=== PATIENT | female | born 1985 | race African-American/Black ===

== ENCOUNTER 2020-05-13 17:06 | Emergency (ER) | payer OTHER ==
[~2020-05-13] VITALS: Ht 160 cm; Wt 59.0 kg
[2020-05-13] MEDS ORDERED: IOHEXOL 300 MG/ML 75 ML VIAL. IV ONE (18:00)
[2020-05-13] MEDS ORDERED: CONTRAST GIVEN. MC PRN (18:15)
--- NOTE | 2020-05-13 18:23 | PHYS DOC ---
Past History Past Medical History: No Pertinent History Past Surgical History: No Surgical History Alcohol Use: None Adult General Chief Complaint Chief Complaint: FLANK PAIN HPI HPI Patient is a 34-year-old female who presents for abdominal pain. States this has been going on for past 3 days and has waxed and waned but today on waking up is been constant and right lower quadrant. Certain body positions make better, as such other body positions make worse such as stretching and overhead exercises with her arms. Patient reports being physically active and has been working out more than usual lately with her personal companion. Denies any fever, no shortness of breath, admits mild nausea without any vomiting or diarrhea. Patient denies any urinary symptoms or changes in baseline bladder or bowel function. No COVID-19 contact, no concerning ingestion or long distance travel Review of Systems Review of Systems Fourteen body systems of review of systems have been reviewed. See HPI for pertinent positives and negative responses, other patricia all other systems are negative, non-pertinent or non-contributory Current Medications Current Medications Current Medications Medications (Trade) Dose Ordered Sig/Micheal Start Time Stop Time Status Last Admin Dose Admin Info (Do NOT chart on this entry -- for MONITORING) 1 each PRN DAILY PRN 05/13/20 18:15 05/15/20 18:14 Iohexol (Omnipaque 300 Mg/ml) 75 ml 1X ONCE 05/13/20 18:00 05/13/20 18:01 DC 05/13/20 18:05 75 ML Allergies Allergies Allergies Coded Allergies Type Severity Reaction Last Updated Verified Penicillins Allergy Unknown 05/13/20 Yes acetaminophen Allergy Unknown 05/13/20 Yes aspirin Allergy Unknown 05/13/20 Yes oxycodone Allergy Unknown 05/13/20 Yes Physical Exam Physical Exam Constitutional: Well developed, well nourished, no acute distress, non-toxic appearance. HENT: Normocephalic, atraumatic, bilateral external ears normal, oropharynx moist, no oral exudates, nose normal. Eyes: PERRLA, EOMI, conjunctiva normal, no discharge. Neck: Normal range of motion, no tenderness, supple, no stridor. Cardiovascular: Heart rate regular, sinus rhythm, no murmurs rubs or gallops Lungs & Thorax: Bilateral breath sounds clear to auscultation Abdomen: Bowel sounds normal, soft, positive McBurney's point tenderness without guarding or rebound, no masses, no pulsatile masses. Nonsurgical abdomen, no peritoneal signs Skin: Warm, dry, no erythema, no rash. Back: No tenderness, no CVA tenderness. Extremities: No tenderness, no cyanosis, no clubbing, ROM intact, no edema. Neurologic: Alert and oriented X 3, grossly normal motor & sensory function, no focal deficits noted. Psychologic: Affect normal, judgement normal, anxious mood Current Patient Data Vital Signs Vital Signs Date Time Temp Pulse Resp B/P (MAP) Pulse Ox O2 Delivery O2 Flow Rate FiO2 05/13/20 17:17 98.7 108 16 138/104 (115) 98 Room Air Lab Results Laboratory Tests Test 05/13/20 17:44 POC Urine HCG, Qualitative hcg negative (Negative) EKG EKG [] Radiology/Procedures Radiology/Procedures PROCEDURE: CT ABD PELV W/ IV CONTRST ONLY INDICATION: Reason: RLQ abdominal pain, urinary frequency. Omni 300 75cc / Spl. Instructions: / History: . COMPARISON: None. TECHNIQUE: Axial CT images obtained through the abdomen and pelvis with contrast. One or more of the following individualized dose reduction techniques were utilized for this examination: 1. Automated exposure control; 2. Adjustment of the mA and/or kV according to patient size; 3. Use of iterative reconstruction technique. FINDINGS: Abdominal aorta is not aneurysmal. There is some prominent lymph nodes in the groin. No intrahepatic bile duct dilation. No peripancreatic fluid collection. Spleen is unremarkable. No hydronephrosis. Urinary bladder is partially distended. No periappendiceal inflammatory changes. No dilated loops of bowel to suggest obstruction. IMPRESSION: * No evidence of bowel obstruction or appendicitis. * No hydronephrosis. * The urinary bladder is not very distended with some prominence the wall but this is commonly seen within the bladder is not distended. Electronically signed by: Maximilian Zapata MD (05/13/2020 6:45 PM) [id number] Heart Score Risk Factors: Risk Factors: DM, Current or recent (<one month) smoker, HTN, HLP, family history of CAD, obesity. Risk Scores: Risk Factors: DM, Current or recent (<one month) smoker, HTN, HLP, family history of CAD, obesity. Course & Med Decision Making Course & Med Decision Making Patient seen after initial work-up started by off going ER physician Jacob nonconcerning Comprehensive history and physical exam obtained Patient asymptomatic throughout entirety of ER visit. Reviewed grossly negative work-up I discussed most likely diagnosis of abdominal pain unspecified versus musculoskeletal abdominal wall strain from recent increase in physical activity I did disclose this might be an acute presentation more concerning pathology and as such, close PCP follow-up was advised and strict return precautions were discussed extensively with good understanding Ultimately patient discharged home with continued supportive care, exercises, and outpatient PCP follow-up [place] Disclaimer Dragon Disclaimer This electronic medical record was generated, in whole or in part, using a voice recognition dictation system. Departure Departure: Impression: Primary Impression: Abdominal pain Disposition: DC HOME SELF CARE/HOMELESS Condition: STABLE Referrals: SANJU HADLEY DO (PCP) Patient Instructions: Abdominal Pain (Nonspecific) Additional Instructions: As discussed prior to ER departure, please call your primary care physician first thing tomorrow morning to schedule outpatient follow-up in upcoming 1 to 7 days time Please discuss role of physical therapy versus therapeutic abdominal wall injection for likely musculoskeletal related abdominal pain for which you were seen for today Concerning signs or symptoms represent prior to outpatient follow-up, please do not hesitate to represent for formal evaluation. Is a pleasure to take care of you and I wish you a speedy recovery! ZAIRA GONZALEZ DO May 13, 2020 18:23
[2020-05-13 18:29] LABS: BASO % 1 % (0-3); EOS # 0.1 x10^3/uL (0.0-0.7); EOS % 1 % (0-3); HEMATOCRIT 34.8 % (36.0-47.0); HEMOGLOBIN 11.3 g/dL (12.0-15.5); LYMPH % 26 % (24-48); MEAN CORPUSCULAR HEMOGLOBIN 27 pg (25-35); MEAN CORPUSCULAR HGB CONC 33 g/dL (31-37); MEAN CORPUSCULAR VOLUME 83 fL (79-100); MONO # 0.7 x10^3/uL (0.0-1.1); MONO % 9 % (0-9); NEUT # 4.8 x10^3uL (1.8-7.7); NEUT % 64 % (31-73); PLATELET COUNT 367 x10^3/uL (140-400); WHITE BLOOD COUNT 7.6 x10^3/uL (4.0-11.0)
[2020-05-13 18:40] LABS: CALCIUM 8.9 mg/dL (8.5-10.1); GFR 76.3; POTASSIUM 3.6 mmol/L (3.5-5.1)
[2020-05-13 18:45] LABS: BILIRUBIN,URINE NEG (NEG); CLARITY,URINE CLEAR; COLOR,URINE YELLOW; GLUCOSE,URINE NEG (NEG); NITRITE,URINE NEG (NEG); UROBILINOGEN,URINE 0.2 mg/dL (0.2 mg/dL)
[2020-05-13 18:46] LABS: ALBUMIN 3.2 g/dL (3.4-5.0); ALBUMIN/GLOBULIN RATIO 0.8 (1.0-1.7); TOTAL BILIRUBIN 0.1 mg/dL (0.2-1.0); TOTAL PROTEIN 7.1 g/dL (6.4-8.2)
[2020-05-13 18:47] LABS: BACTERIA,URINE FEW /HPF (0-FEW); SQUAMOUS EPITHELIAL CELL,UR FEW /LPF; WBC,URINE OCC /HPF (0-4)
--- NOTE | 2020-05-13 18:49 | RAD ---
INDICATION: Reason: RLQ abdominal pain, urinary frequency. Omni 300 75cc / Spl. Instructions: / History: . COMPARISON: None. TECHNIQUE: Axial CT images obtained through the abdomen and pelvis with contrast. One or more of the following individualized dose reduction techniques were utilized for this examination: 1. Automated exposure control; 2. Adjustment of the mA and/or kV according to patient size; 3. Use of iterative reconstruction technique. FINDINGS: Abdominal aorta is not aneurysmal. There is some prominent lymph nodes in the groin. No intrahepatic bile duct dilation. No peripancreatic fluid collection. Spleen is unremarkable. No hydronephrosis. Urinary bladder is partially distended. No periappendiceal inflammatory changes. No dilated loops of bowel to suggest obstruction. IMPRESSION: * No evidence of bowel obstruction or appendicitis. * No hydronephrosis. * The urinary bladder is not very distended with some prominence the wall but this is commonly seen within the bladder is not distended. Electronically signed by: Maximilian Zapata MD (05/13/2020 6:45 PM) [id number]
[2020-05-13 19:20] VITALS: BP 144/94
== END 2020-05-13 19:25 | disposition home or self-care (01) ==
LOC: ER 17:06
DX: R10.31 Right lower quadrant pain (principal); Z88.0 Allergy status to penicillin; Z88.5 Allergy status to narcotic agent; Z88.6 Allergy status to analgesic agent
CPT/HCPCS: 36415; 74177; 80053; 81001; 81025; 85025; 87086; 99285; Q9967

== ENCOUNTER 2020-05-22 15:59 | Emergency (ER) | payer OTHER ==
[~2020-05-22] VITALS: Ht 160 cm; Wt 59.0 kg
[2020-05-22 16:00] VITALS: BP 163/107
[2020-05-22] MEDS ORDERED: IV NORMAL SALINE 1,000ML 1,000 ML IV ONE (16:45)
--- NOTE | 2020-05-22 17:28 | RAD ---
CHEST AP ONLY Clinical History: Reason: cough, +Covid / Spl. Instructions: / History: Technique: AP view of the chest was obtained at 05/22/2020 4:43 PM. Comparison: None. Findings: The cardiomediastinal silhouette is normal. The pulmonary vasculature is normal. The lungs and pleural margins are clear. Impression: No evidence of an acute cardiopulmonary process. Electronically signed by: Ramesh Allen III, MD (05/22/2020 5:25 PM) [facility]
--- NOTE | 2020-05-22 17:29 | RAD ---
COMPLETE RENAL ULTRASOUND Indication: Flank pain, Covid positive. Comparison: None. Procedure: Transabdominal ultrasound images are obtained of the kidneys and bladder. Findings: The kidneys demonstrate normal cortical echotexture. Corticomedullary differentiation is preserved. There is no hydronephrosis. The right kidney measures 11.3 cm. The left kidney measures 10.3 cm. The urinary bladder is not well distended but otherwise normal. The IVC is patent. The visualized abdominal aorta is normal caliber. IMPRESSION: Unremarkable renal ultrasound. Electronically signed by: Paulo Monge MD (05/22/2020 5:27 PM) [id number]
--- NOTE | 2020-05-22 17:53 | PHYS DOC ---
Past History Past Medical History: No Pertinent History Past Surgical History: No Surgical History Alcohol Use: None Adult General Chief Complaint Chief Complaint: BLOOD IN URINE HPI HPI Patient is a 34-year-old female patient presented to the ED today requesting renal ultrasound. Patient states she was seen at [facility] last week and her urine was brown, they ordered an outpatient ultrasound but she tested positive for COVID 19 and she was sent to the ED for the ultrasound. Renal ultrasound is negative. Chest x-ray is negative. Review of Systems Review of Systems Constitutional: Denies fever or chills [] Eyes: Denies change in visual acuity, redness, or eye pain [] HENT: Denies nasal congestion or sore throat [] Respiratory: Denies cough or shortness of breath [] Cardiovascular: No additional information not addressed in HPI [] GI: Denies abdominal pain, nausea, vomiting, bloody stools or diarrhea [] : Denies dysuria or hematuria [] Musculoskeletal: Denies back pain or joint pain [] Integument: Denies rash or skin lesions [] Neurologic: Denies headache, focal weakness or sensory changes [] Endocrine: Denies polyuria or polydipsia [] All other systems were reviewed and found to be within normal limits, except as documented in this note. Current Medications Current Medications Current Medications Medications (Trade) Dose Ordered Sig/Micheal Start Time Stop Time Status Last Admin Dose Admin Sodium Chloride 1,000 ml @ 1,000 mls/hr 1X ONCE 05/22/20 16:45 05/22/20 17:39 DC Allergies Allergies Allergies Coded Allergies Type Severity Reaction Last Updated Verified Penicillins Allergy Unknown 05/13/20 Yes acetaminophen Allergy Unknown 05/13/20 Yes aspirin Allergy Unknown 05/13/20 Yes oxycodone Allergy Unknown 05/13/20 Yes Physical Exam Physical Exam Constitutional: Well developed, well nourished, no acute distress, non-toxic appearance. [] HENT: Normocephalic, atraumatic, bilateral external ears normal, oropharynx moist, no oral exudates, nose normal. [] Eyes: PERRLA, EOMI, conjunctiva normal, no discharge. [] Neck: Normal range of motion, no tenderness, supple, no stridor. [] Cardiovascular:Heart rate regular rhythm, no murmur [] Lungs & Thorax: Bilateral breath sounds clear to auscultation [] Abdomen: Bowel sounds normal, soft, no tenderness, no masses, no pulsatile masses. [] Skin: Warm, dry, no erythema, no rash. [] Back: No tenderness, no CVA tenderness. [] Extremities: No tenderness, no cyanosis, no clubbing, ROM intact, no edema. [] Neurologic: Alert and oriented X 3, normal motor function, normal sensory function, no focal deficits noted. [] Psychologic: Affect normal, judgement normal, mood normal. [] Current Patient Data Vital Signs Vital Signs Date Time Temp Pulse Resp B/P (MAP) Pulse Ox O2 Delivery O2 Flow Rate FiO2 05/22/20 16:00 89 16 163/107 (125) 100 Room Air EKG EKG [] Radiology/Procedures Radiology/Procedures []PROCEDURE: RENAL COMPLETE BILATERAL COMPLETE RENAL ULTRASOUND Indication: Flank pain, Covid positive. Comparison: None. Procedure: Transabdominal ultrasound images are obtained of the kidneys and bladder. Findings: The kidneys demonstrate normal cortical echotexture. Corticomedullary differentiation is preserved. There is no hydronephrosis. The right kidney measures 11.3 cm. The left kidney measures 10.3 cm. The urinary bladder is not well distended but otherwise normal. The IVC is patent. The visualized abdominal aorta is normal caliber. IMPRESSION: Unremarkable renal ultrasound. Electronically signed by: Paulo Monge MD (05/22/2020 5:27 PM) [id number] DICTATED AND SIGNED BY: PAULO MONGE MD DATE: 05/22/201726 CC: [facility]; SANJU HADLEY DO; ENID SY APRN ~ PROCEDURE: CHEST AP ONLY CHEST AP ONLY Clinical History: Reason: cough, +Covid / Spl. Instructions: / History: Technique: AP view of the chest was obtained at 05/22/2020 4:43 PM. Comparison: None. Findings: The cardiomediastinal silhouette is normal. The pulmonary vasculature is normal. The lungs and pleural margins are clear. Impression: No evidence of an acute cardiopulmonary process. Electronically signed by: Isaias Duff III, MD (05/22/2020 5:25 PM) [facility] DICTATED AND SIGNED BY: ISAIAS DUFF III, MD DATE: 05/22/20 172 CC: [facility]; SANJU HADLEY DO; ENID SY APRN ~ Heart Score Risk Factors: Risk Factors: DM, Current or recent (<one month) smoker, HTN, HLP, family history of CAD, obesity. Risk Scores: Risk Factors: DM, Current or recent (<one month) smoker, HTN, HLP, family history of CAD, obesity. Course & Med Decision Making Course & Med Decision Making Pertinent Labs and Imaging studies reviewed. (See chart for details) This is a 34-year-old female patient presented to the ED today to get renal ultrasound. She was scheduled to do this but she tested positive for COVID-19 and was sent to the ED. She has had a brown colored urine last week. UA is negative, renal ultrasound are negative. Discharge to home. Follow-up with her doctor in the course of next week. Instructed to push fluids. Dragon Disclaimer Dragon Disclaimer This electronic medical record was generated, in whole or in part, using a voice recognition dictation system. Departure Departure: Impression: Primary Impression: Dark urine Disposition: 01 DC HOME SELF CARE/HOMELESS Condition: STABLE Referrals: SANJU HADLEY DO (PCP) follow up next week Patient Instructions: Flank Pain, [id number] Additional Instructions: Your renal ultrasound was negative. Please follow-up with your own doctor next week. Come back to the ED at any point symptoms worsen. You are Covid positive, quarantine yourself for 10 days from the day you were diagnosed MARLENAENID STARR RAVI May 22, 2020 17:53
[2020-05-22 18:06] LABS: BILIRUBIN,URINE NEG (NEG); CLARITY,URINE CLEAR; COLOR,URINE STRAW; GLUCOSE,URINE NEG (NEG)
[2020-05-22 18:07] LABS: BACTERIA,URINE FEW /HPF (0-FEW); NITRITE,URINE NEG (NEG); SQUAMOUS EPITHELIAL CELL,UR FEW /LPF; UROBILINOGEN,URINE 0.2 mg/dL (0.2 mg/dL)
== END 2020-05-22 18:28 | disposition home or self-care (01) ==
LOC: ER 15:59
DX: R82.998 Other abnormal findings in urine (principal); U07.1 COVID-19; Z88.0 Allergy status to penicillin; Z88.5 Allergy status to narcotic agent; Z88.6 Allergy status to analgesic agent
CPT/HCPCS: 71045; 76770; 81001; 99285-25

== ENCOUNTER 2020-06-01 23:34 | Emergency (ER) | payer OTHER ==
[~2020-06-01] VITALS: Ht 162.6 cm; Wt 70.3 kg
--- NOTE | 2020-06-02 00:45 | PHYS DOC ---
Past History Past Medical History: No Pertinent History Past Medical History COVID Past Surgical History: No Surgical History Alcohol Use: None General Adult EDM: Chief Complaint: SHORTNESS OF BREATH HPI: HPI: ".. I was diagnosed with Covid on May 21... I still feel like I got the flu.. 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 Patient had a confirmed diagnosis of Covid on May 21.. Since that time she has been self isolating. Patient states generalized discomfort since diagnosis. Tonight she presents because she feels she is more short of breath. Patient denies any history of coagulopathy. No history of recent travel outside [facility]. No specific ill contacts. Patient is normally healthy and in good physical condition. Patient only follows at [place]. Review of Systems: Review of Systems: Constitutional: Complains of fever or chills Eyes: Denies change in visual acuity HENT: Complains of nasal congestion Respiratory: Complains of cough, wheezing and shortness of breath Cardiovascular: Denies chest pain or edema GI: Denies abdominal pain, nausea, vomiting, bloody stools or diarrhea : Denies dysuria Musculoskeletal: Complains of generalized myalgia, arthralgia Integument: Denies rash Neurologic: Denies headache, focal weakness or sensory changes Endocrine: Denies polyuria or polydipsia Lymphatic: Denies swollen glands Psychiatric: Denies depression or anxiety Family History: Family History: Noncontributory Current Medications: Current Meds: See nursing for home medications Allergies: Allergies: Allergies Coded Allergies Type Severity Reaction Last Updated Verified Penicillins Allergy Unknown 05/13/20 Yes acetaminophen Allergy Unknown 05/13/20 Yes aspirin Allergy Unknown 05/13/20 Yes oxycodone Allergy Unknown 05/13/20 Yes Physical Exam: PE: Constitutional: Well developed, well nourished, moderate acute distress, non- toxic appearance. [] HENT: Normocephalic, atraumatic, bilateral external ears normal, oropharynx moist, no oral exudates, nose swollen turbinates and clear rhinorrhea Eyes: PERRLA, EOMI, conjunctiva normal, no discharge. [] Neck: Normal range of motion, no tenderness, supple, no stridor. [] Cardiovascular:Heart rate regular rhythm, no murmur [] Lungs & Thorax: Bilateral breath sounds equal apex with scattered wheezes auscultation [] Abdomen: Bowel sounds normal, soft, no tenderness, no masses, no pulsatile masses. [] Skin: Warm, dry, no erythema, no rash. [] Back: No tenderness, no CVA tenderness. [] Extremities: No tenderness, no cyanosis, no clubbing, ROM intact, no edema. No cording appreciated Neurologic: Alert and oriented X 3, normal motor function, normal sensory function, no focal deficits noted. [] Psychologic: Affect anxious, judgement normal, mood normal. [] Current Patient Data: Labs: Laboratory Tests Test 06/02/20 00:16 POC Urine HCG, Qualitative hcg negative (Negative) EKG: EKG: My interpretation of EKG shows a sinus rhythm at 75 bpm. No findings of acute STEMI with contralateral changes [] Radiology/Procedures: Radiology/Procedures: [[address] [id number] IMAGING REPORT Signed PATIENT: SHERINE SCHWARTZ ACCOUNT: [id number] : 1985 LOCATION: ER AGE: 34 SEX: F EXAM STATUS: REG ER ORD. PHYSICIAN: JUAN MANUEL WEBBER MD REASON: SOB PROCEDURE: PORTABLE CHEST 1V Study: CR PORTABLE CHEST 1V Indication: Shortness of breath. Comparison: 05/22/2020 Findings: Unchanged cardiomediastinal silhouette and stephanie. Slight asymmetric haziness at the right lung base relative to the left but this could be in part summation artifact. No dense consolidation. No layering effusion or pneumothorax. Grossly intact osseous structures. Impression: Mild asymmetric haziness at the right lung base though this could be related to summation artifact. No findings of a typical pneumonia. Attention on the forthcoming CT which will more completely assess the lungs. Electronically signed by: PAMELA PICKETT MD (06/02/2020 1:07 AM) [id number] DICTATED AND SIGNED BY: PAMELA PICKETT MD DATE: 06/02/20 0107 CC: JUAN MANUEL WEBBER MD; SANJU HADLEY DO ~ ][address] [id number] IMAGING REPORT Signed PATIENT: SHERINE SCHWARTZ ACCOUNT: [id number] : 1985 LOCATION: ER AGE: 34 SEX: F EXAM STATUS: REG ER ORD. PHYSICIAN: JUAN MANUEL WEBBER MD REASON: Pleuritic chest pain, positive COVID 05/21, OMNI 350, 90ml PROCEDURE: CT ANGIOGRAPHY CHEST Study: CT CHEST WITH CONTRAST - PULMONARY ANGIOGRAM History: Pleuritic chest pain. COVID-19 positive. Comparison: CT abdomen/pelvis 05/13/2020 Technique: Helical CT of the chest performed after the administration of 90 cc Omnipaque 350 intravenous contrast and timed for angiographic evaluation of the pulmonary arteries per PE protocol. Coronal and sagittal 3D MIP reformations were obtained. One or more of the following individualized dose reduction techniques were utilized for this examination: 1. Automated exposure control 2. Adjustment of the mA and/or kV according to patient size 3. Use of iterative reconstruction technique. Findings: Pulmonary Arteries: No main, lobar or segmental pulmonary embolism. Heart/Systemic Vasculature: No aortic dissection. The visualized great vessels are patent. No CT manifestations of right heart strain. Mediastinum: Small amount of fluid within the mid upper esophageal lumen. Nonmasslike soft tissue at the anterior mediastinum most typical of residual thymic tissue. Either a mildly prominent subcarinal lymph node or pericardial recess fluid. Mildly prominent left hilar lymph node measuring 1 cm short axis, image 56 series 5. These findings are favored reactive given the appearance of the lungs. Lungs: Nodular, predominantly subpleural opacities scattered throughout both lungs most notable at the right lung base. Background mild atelectasis. No pneumothorax or pleural effusion. The central airways are patent. Neck/Axilla/Body Wall: Within normal limits. Upper Abdomen: No acute abnormality. Bones: As no acute or aggressive osseous process. Miscellaneous: None. IMPRESSION: 1. No main, lobar or segmental pulmonary embolism. 2. Scattered nodular opacities involving both lungs with a subpleural predilection. Image Scientist pleural-based opacities at the right lower lobe on image 71 series 5. Especially given history, an atypical viral pneumonia is favored though follow-up is recommended to confirm improvement. Electronically signed by: PAMELA PICKETT MD (06/02/2020 3:20 AM) [id number] DICTATED AND SIGNED BY: PAMELA PICKETT MD DATE: 06/02/20319 CC: JUAN MANUEL WEBBER MD; SANJU HADLEY DO ~ Heart Score: HEART Score for Chest Pain: HEART Score for Chest Pain Response (Comments) Value History Slighlty/Non-Suspicious 0 ECG Normal 0 Age < 45 0 Risk Factors No Risk Factors 0 Troponin < Normal Limit 0 Total 0 Risk Factors: Risk Factors: DM, Current or recent (<one month) smoker, HTN, HLP, family history of CAD, obesity. Risk Scores: Score 0 - 3: 2.5% MACE over next 6 weeks - Discharge Home Score 4 - 6: 20.3% MACE over next 6 weeks - Admit for Clinical Observation Score 7 - 10: 72.7% MACE over next 6 weeks - Early Invasive Strategies Course & Med Decision Making: Course & Med Decision Making Pertinent Labs and Imaging studies reviewed. (See chart for details) Patient continues to self isolate. Patient wear a mask covering her nose and mouth when close to anyone else. Patient follow-up with primary care. Patient push fruit juices. Patient take Tylenol and ibuprofen Profen for fever and discomfort. For marked discomfort may take Vicoprofen up 4 times a day. Patient use MDI 2 puffs 4 times a day with spacer. Patient take Zithromax 250 mg daily. Patient take Eliquis 2.5 mg twice a day. Patient return if any concerns. Impression: 1. Viral syndrome 2. Positive COVID test 05/21 3. Mild hypokalemia 3.3 4. Anemia hemoglobin 11.6 5. Mild elevation D-dimer 0.99 [] Dragon Disclaimer: Dragon Disclaimer: This electronic medical record was generated, in whole or in part, using a voice recognition dictation system. Departure Departure: Referrals: SANJU HADLEY DO (PCP) Scripts Ondansetron Hcl (ZOFRAN) 4 Mg Tablet 8 MG PO QIDPRN PRN for NAUSEA/VOMITING, #30 TAB Prov: JUAN MANUEL WEBBER MD 06/02/20 Apixaban (ELIQUIS) 2.5 Mg Tablet 2.5 MG PO BID for COVID for 14 Days, #28 TAB Prov: JUAN MANUEL WEBBER MD 06/02/20 Hydrocodone/Ibuprofen (HYDROCODONE-IBUPROFEN 7.5-200 ) 1 Each Tablet 1 TAB PO PRN Q6HRS PRN for PAIN, #30 TAB 0 Refills Prov: JUAN MANUEL WEBBER MD 06/02/20 Azithromycin (ZITHROMAX) 250 Mg Tablet 250 MG PO DAILY for ANTI-BIOTIC, #5 TAB 0 Refills Prov: JUAN MANUEL WEBBER MD 06/02/20 Dragon Disclaimer This chart was dictated in whole or in part using Voice Recognition software in a busy, high-work load, and often noisy Emergency Department environment. It may contain unintended and wholly unrecognized errors or omissions. JUAN MANUEL WEBBER MD Jun 02, 2020 00:45
[2020-06-02] MEDS ORDERED: IV RINGERS SOLUTION,LACTATED 1,000 ML IV SCH (00:50)
--- NOTE | 2020-06-02 01:10 | RAD ---
Study: CR PORTABLE CHEST 1V Indication: Shortness of breath. Comparison: 05/22/2020 Findings: Unchanged cardiomediastinal silhouette and stephanie. Slight asymmetric haziness at the right lung base relative to the left but this could be in part summation artifact. No dense consolidation. No layering effusion or pneumothorax. Grossly intact osseous structures. Impression: Mild asymmetric haziness at the right lung base though this could be related to summation artifact. No findings of a typical pneumonia. Attention on the forthcoming CT which will more completely assess the lungs. Electronically signed by: PAMELA PICKETT MD (06/02/2020 1:07 AM) [id number]
[2020-06-02] MEDS ORDERED: CONTRAST GIVEN. MC PRN (01:15)
[2020-06-02 01:25] LABS: BARBITURATES NEG (NEG); BENZODIAZEPINES NEG (NEG); CANNABINOIDS NEG (NEG); COCAINE NEG (NEG); METHADONE NEG (NEG); OPIATES NEG (NEG); PHENCYCLIDINE NEG (NEG)
[2020-06-02 01:27] LABS: BACTERIA,URINE 0 /HPF (0-FEW); BILIRUBIN,URINE NEG (NEG); CLARITY,URINE CLEAR; COLOR,URINE YELLOW; GLUCOSE,URINE NEG (NEG); NITRITE,URINE NEG (NEG); RBC,URINE OCC /HPF (0-2); SQUAMOUS EPITHELIAL CELL,UR FEW /LPF; UROBILINOGEN,URINE 0.2 mg/dL (0.2 mg/dL); WBC,URINE OCC /HPF (0-4)
[2020-06-02 01:28] LABS: AMPHETAMINE/METHAMPHETAMINE NEG (NEG)
[2020-06-02] MEDS ORDERED: ALBUTEROL SULFATE 8GM INHALER. IH ONE (01:30)
[2020-06-02] MEDS ORDERED: IOHEXOL 350 MG/ML 100 ML VIAL. IV ONE (01:30)
[2020-06-02] MEDS ORDERED: APIXABAN 2.5 MG TABLET ONE (01:59)
[2020-06-02 02:18] LABS: BASO % 1 % (0-3); EOS # 0.1 x10^3/uL (0.0-0.7); EOS % 2 % (0-3); HEMATOCRIT 35.9 % (36.0-47.0); HEMOGLOBIN 11.6 g/dL (12.0-15.5); LYMPH # 2.4 x10^3/uL (1.0-4.8); LYMPH % 39 % (24-48); MEAN CORPUSCULAR HEMOGLOBIN 27 pg (25-35); MEAN CORPUSCULAR HGB CONC 32 g/dL (31-37); MEAN CORPUSCULAR VOLUME 83 fL (79-100); MONO # 0.6 x10^3/uL (0.0-1.1); MONO % 10 % (0-9); NEUT % 49 % (31-73); PLATELET COUNT 383 x10^3/uL (140-400); RED BLOOD COUNT 4.33 x10^6/uL (3.50-5.40); RED CELL DISTRIBUTION WIDTH 14.7 % (11.5-14.5); WHITE BLOOD COUNT 6.2 x10^3/uL (4.0-11.0)
[2020-06-02 02:32] LABS: GFR 76.3; POTASSIUM 3.3 mmol/L (3.5-5.1)
[2020-06-02 02:38] LABS: ALBUMIN 3.3 g/dL (3.4-5.0); DIRECT BILIRUBIN 0.1 mg/dL (0.0-0.2); MAGNESIUM 1.9 mg/dL (1.8-2.4); TOTAL BILIRUBIN 0.2 mg/dL (0.2-1.0); TOTAL PROTEIN 8.2 g/dL (6.4-8.2)
--- NOTE | 2020-06-02 03:23 | RAD ---
Study: CT CHEST WITH CONTRAST - PULMONARY ANGIOGRAM History: Pleuritic chest pain. COVID-19 positive. Comparison: CT abdomen/pelvis 05/13/2020 Technique: Helical CT of the chest performed after the administration of 90 cc Omnipaque 350 intravenous contrast and timed for angiographic evaluation of the pulmonary arteries per PE protocol. Coronal and sagittal 3D MIP reformations were obtained. One or more of the following individualized dose reduction techniques were utilized for this examination: 1. Automated exposure control 2. Adjustment of the mA and/or kV according to patient size 3. Use of iterative reconstruction technique. Findings: Pulmonary Arteries: No main, lobar or segmental pulmonary embolism. Heart/Systemic Vasculature: No aortic dissection. The visualized great vessels are patent. No CT manifestations of right heart strain. Mediastinum: Small amount of fluid within the mid upper esophageal lumen. Nonmasslike soft tissue at the anterior mediastinum most typical of residual thymic tissue. Either a mildly prominent subcarinal lymph node or pericardial recess fluid. Mildly prominent left hilar lymph node measuring 1 cm short axis, image 56 series 5. These findings are favored reactive given the appearance of the lungs. Lungs: Nodular, predominantly subpleural opacities scattered throughout both lungs most notable at the right lung base. Background mild atelectasis. No pneumothorax or pleural effusion. The central airways are patent. Neck/Axilla/Body Wall: Within normal limits. Upper Abdomen: No acute abnormality. Bones: As no acute or aggressive osseous process. Miscellaneous: None. IMPRESSION: 1. No main, lobar or segmental pulmonary embolism. 2. Scattered nodular opacities involving both lungs with a subpleural predilection. Dynamite Shooter pleural-based opacities at the right lower lobe on image 71 series 5. Especially given history, an atypical viral pneumonia is favored though follow-up is recommended to confirm improvement. Electronically signed by: PAMELA PICKETT MD (06/02/2020 3:20 AM) [id number]
[2020-06-02] MEDS ORDERED: AZITHROMYCIN 250 MG TABLET. ONE (05:25)
[2020-06-02] MEDS ORDERED: HYDR-1179 PO (05:30)
[2020-06-02] MEDS ORDERED: AZIT250T PO (05:30)
[2020-06-02] MEDS ORDERED: APIX2.5T PO (05:30)
[2020-06-02] MEDS ORDERED: ONDA4TAB7 PO (05:30)
[2020-06-02 05:46] VITALS: BP 177/111
--- NOTE | 2020-06-02 05:48 | EKG ---
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
[2020-06-02] MEDS ORDERED: AZITHROMYCIN 250 MG TABLET. PO ONE (06:00)
[2020-06-02] MEDS ORDERED: ONDANSETRON ODT 4 MG TAB.RAPDIS PO ONE (06:00)
[2020-06-02] MEDS ORDERED: APIXABAN 2.5 MG TABLET PO SCH (09:00)
== END 2020-06-02 05:52 | disposition home or self-care (01) ==
LOC: ER 23:34
DX: B34.9 Viral infection, unspecified (principal); U07.1 COVID-19; E87.6 Hypokalemia; D64.9 Anemia, unspecified; R79.1 Abnormal coagulation profile; Z88.0 Allergy status to penicillin; Z88.5 Allergy status to narcotic agent; Z88.6 Allergy status to analgesic agent; Z88.8 Allergy status to other drugs, medicaments and biological substances
CPT/HCPCS: 36415; 71045; 71275; 80048; 80076; 80307; 81001; 81025; 82550; 83690; 83735; 84443; 84484; 85025; 85379; 85610; 93005; 94640; 96360; 99285; J0456; J7120; J7613; Q0162; Q9967; 94664

== ENCOUNTER 2021-02-15 18:02 | Emergency (ER) | payer OTHER ==
[~2021-02-15] VITALS: Ht 162.6 cm; Wt 70.3 kg
[~2021-02-15 18:02] MED LIST: APIX2.5T PO; AZIT250T PO; HYDR-1179 PO; ONDA4TAB7 PO
[2021-02-15 18:55] VITALS: BP 136/89
--- NOTE | 2021-02-15 19:06 | PHYS DOC ---
Past History Past Medical History: No Pertinent History (YUMIKO MCKEON APRN) Past Surgical History: No Surgical History (YUMIKO MCKEON APRN) Alcohol Use: None (YUMIKO MCKEON APRN) General Adult EDM: Chief Complaint: SORE THROAT HPI: HPI: Patient is a 35-year-old female who presents with sinus drainage, headache, sore throat. [place] and Flonase with little symptom relief. Patient states that she has a history of chronic sinus infections. Denies fever. Reports cough when she is laying down from drainage. History of GERD, hypertension (YUMIKO MCKEON APRN) Review of Systems: Review of Systems: Constitutional: Denies fever or chills Eyes: Denies change in visual acuity HENT: Reports nasal congestion and sore throat Respiratory: Reports cough, denies shortness of breath Cardiovascular: Denies chest pain or edema GI: Denies abdominal pain, nausea, vomiting, bloody stools or diarrhea : Denies dysuria Musculoskeletal: Denies back pain or joint pain Integument: Denies rash Neurologic: Denies headache, focal weakness or sensory changes Endocrine: Denies polyuria or polydipsia Lymphatic: Denies swollen glands Psychiatric: Denies depression or anxiety (YUMIKO MCKEON APRN) Allergies: Allergies: Allergies Coded Allergies Type Severity Reaction Last Updated Verified Penicillins Allergy Unknown 05/13/20 Yes acetaminophen Allergy Unknown 05/13/20 Yes aspirin Allergy Unknown 05/13/20 Yes oxycodone Allergy Unknown 05/13/20 Yes (YUMIKO MCKEON APRN) Physical Exam: PE: Constitutional: Well developed, well nourished, no acute distress, non-toxic appearance. [] HENT: bilateral external ears normal, oropharynx moist and red, no oral exudates, nose normal. [] Eyes: PERRLA, EOMI, conjunctiva normal, no discharge. [] Neck: Normal range of motion, no tenderness, supple, no stridor. [] Cardiovascular:Heart rate regular rhythm, no murmur [] Lungs & Thorax: Bilateral breath sounds clear to auscultation [] Abdomen: Bowel sounds normal, soft, no tenderness, no masses, no pulsatile masses. [] Skin: Warm, dry, no erythema, no rash. [] Back: No tenderness, no CVA tenderness. [] Extremities: No tenderness, no cyanosis, no clubbing, ROM intact, no edema. [] Neurologic: Alert and oriented X 3, normal motor function, normal sensory function, no focal deficits noted. [] Psychologic: Affect normal, judgement normal, mood normal. [] (YUMIKO MCKEON APRN) EKG: EKG: [] (YUMIKO MCKEON APRN) Radiology/Procedures: Radiology/Procedures: [] (YUMIKO MCKEON APRN) Heart Score: C/O Chest Pain: No Risk Factors: Risk Factors: DM, Current or recent (<one month) smoker, HTN, HLP, family history of CAD, obesity. Risk Scores: Score 0 - 3: 2.5% MACE over next 6 weeks - Discharge Home Score 4 - 6: 20.3% MACE over next 6 weeks - Admit for Clinical Observation Score 7 - 10: 72.7% MACE over next 6 weeks - Early Invasive Strategies (YUMIKO MCKEON APRN) Course & Med Decision Making: Course & Med Decision Making Pertinent Labs and Imaging studies reviewed. (See chart for details) [] 35-year-old female who presents with sinus drainage, headache, sore throat. Patient's been taking Kathleen and Flonase with no relief. Patient denies fever. Denies shortness of breath. Patient states that she has a history of chronic sinus infections and feels like she needs an antibiotic. Patient states her symptoms started 4 weeks ago. Throat appears red and irritated. No oral exudates. Uvula is midline. Patient sent home with a prescription for doxycycline to treat sinusitis. Patient given 1 dose in the emergency room. Patient instructed to still take [place] legra and Flonase for symptoms. Follow back up with PCP. Patient is appreciative and okay with discharge plan. (YUMIKO MCKEON APRN) Course & Med Decision Making Did not see or evaluate patient. Agree with BOTTOM TURNING LATHE TURNER's work-up and disposition per note. (LYNDSEY WAGNER MD) Rosalia Disclaimer: Rosalia Disclaimer: This electronic medical record was generated, in whole or in part, using a voice recognition dictation system. (YUMIKO MCKEON APRN) Departure Departure: Impression: Primary Impression: Sinusitis Qualified Codes: J32.1 - Chronic frontal sinusitis Disposition: 01 HOME / SELF CARE / HOMELESS Condition: STABLE Referrals: DANE CAVANAUGH APRN (PCP) Patient Instructions: Sinusitis, Child Additional Instructions: You were seen in the emergency room for sinusitis. Continue taking your Flonase and Kathleen for symptom relief. Sending you home with a prescription for doxycycline. Please follow back up with your PCP for further management and keep your appointments with ENT. If symptoms worsen or you have any concerns please return to the emergency room EMERGENCY DEPARTMENT GENERAL DISCHARGE INSTRUCTIONS Thank you for coming to [facility] (ED) today and trusting us with you care. We trust that you had a positivie experience in our Emergency Department. If you wish to speak to the department management, you may call the director at . YOUR FOLLOW UP INSTRUCTIONS ARE FOLLOWS: 1. Do you have a private Doctor? If you do not have a private doctor, please ask for a resource list of physicians or clinics that may be able to assist you with follow up care. 2. The Emergency Physician has interpreted your x-rays. The X-Ray specialist will also review them. If there is a change in the findings, you will be notified in 48 hours when at all possible. 3. A lab test or culture has been done, your results will be reviewed and you will be notified if you need a change in treatment. ADDITIONAL INSTRUCTIONS AND INFORMATION: 1. Your care today has been supervised by a physician who is specially trained in emergency care. Many problems require more than one evaluation for a complete diagnosis and treatment. We recommend that you schedule your follow up appointment as recommended to ensure complete treatment of you illness or injury. If you are unable to obtain follow up care and continue to have a problem, or if your condition worsens, we recommend that you return to the ED. 2. We are not able to safely determine your condition over the phone nor are we able to give sound medical advice over the phone. For these safety reasons, if you call for medical advice we will ask you to come to the ED for further evaluation. 3. If you have any questions regarding these discharge instructions please call the ED at [phone]. SAFETY INFORMATION: In the interest of safety, wellness, and injury prevention; we encourage you to wear your sealbelt, if you smoke; quite smoking, and we encourage family to use a protective helmet for bicycling and other sporting events that present an increased risk for head injury. IF YOUR SYMPTOMS WORSEN OR NEW SYMPTOMS DEVELOP, OR YOU HAVE CONCERNS ABOUT YOUR CONDITION; OR IF YOUR CONDITION WORSENS WHILE YOU ARE WAITING FOR YOUR FOLLOW UP APPOINTMENT; EITHER CONTACT YOUR PRIMARY CARE DOCTOR, THE PHYSICIAN WHOSE NAME AND NUMBER YOU WERE GIVEN, OR RETURN TO THE ED IMMEDIATELY. Scripts Doxycycline Hyclate (DOXYCYCLINE HYCLATE) 100 Mg Tablet 1 TAB PO BID for sinusitis for 7 Days, #13 TAB Prov: YUMIKO MCKEON APRN 02/15/21 YUMIKO MCKEON APRN Feb 15, 2021 19:06 LYNDSEY WAGNER MD Feb 15, 2021 23:48
[2021-02-15] MEDS ORDERED: DOXY100T PO ×2 (19:22→19:23)
[2021-02-15] MEDS ORDERED: DOXYCYCLINE HYCLATE 100 MG TABLET PO ONE (19:30)
== END 2021-02-15 19:32 | disposition home or self-care (01) ==
LOC: ER 18:02
DX: J32.1 Chronic frontal sinusitis (principal); Z88.0 Allergy status to penicillin; Z88.5 Allergy status to narcotic agent; Z88.6 Allergy status to analgesic agent; Z88.8 Allergy status to other drugs, medicaments and biological substances
CPT/HCPCS: 99283

== ENCOUNTER 2021-08-12 14:08 | Emergency (ER) | payer OTHER ==
[~2021-08-12] VITALS: Ht 160 cm; Wt 72.0 kg
[~2021-08-12 14:08] MED LIST changes: +DOXY100T PO
[2021-08-12] MEDS ORDERED: CYCLOBENZAPRINE 10 MG TABLET. PO ONE (14:30)
--- NOTE | 2021-08-12 14:51 | RAD ---
Single view of the chest. 08/12/2021 2:27 PM Indication: Reason: chest pain / Spl. Instructions: / History: Comparison: Chest radiograph June 02, 2020 Findings: There is no focal consolidation. There is no pleural effusion or pneumothorax. The cardiome diastinal silhouette and pulmonary vasculature are within normal limits. No acute osseous abnormaliti es are seen. Impression: No evidence of acute cardiopulmonary process. Electronically signed by: Maykel Ramos MD (08/12/2021 2:49 PM) [id number]
--- NOTE | 2021-08-12 15:07 | EKG ---
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
[2021-08-12 15:41] LABS: BASO % 1 % (0-3); EOS # 0.1 x10^3/uL (0.0-0.7); EOS % 1 % (0-3); HEMATOCRIT 40.3 % (36.0-47.0); HEMOGLOBIN 13.5 g/dL (12.0-15.5); LYMPH # 1.9 x10^3/uL (1.0-4.8); LYMPH % 30 % (24-48); MEAN CORPUSCULAR HEMOGLOBIN 29 pg (25-35); MEAN CORPUSCULAR HGB CONC 33 g/dL (31-37); MEAN CORPUSCULAR VOLUME 86 fL (79-100); MONO # 0.4 x10^3/uL (0.0-1.1); MONO % 6 % (0-9); NEUT % 63 % (31-73); PLATELET COUNT 397 x10^3/uL (140-400); RED BLOOD COUNT 4.68 x10^6/uL (3.50-5.40); RED CELL DISTRIBUTION WIDTH 13.2 % (11.5-14.5); WHITE BLOOD COUNT 6.4 x10^3/uL (4.0-11.0)
--- NOTE | 2021-08-12 15:53 | PHYS DOC ---
Past History Past Medical History: No Pertinent History Past Surgical History: No Surgical History Alcohol Use: None Adult General Chief Complaint Chief Complaint: CHEST PAIN [facility] HPI The patient is a 35-year-old female with a history of hypertension, asthma and acid reflux. She has no known cardiac history. She presents for evaluation of 2 days of waxing and waning sharp, focal, mildly pleuritic, nonexertional right sided sternal chest discomfort. She feels some mild discomfort in her right arm at times as well, although not now. Severity of discomfort is about a 5 out of 10 right now, although she notes that it will go away and then come back somewhat randomly and last for a minute or two at a time before going away again. Symptoms occur in the setting of a persistent dry cough, mild, over the past couple of weeks, in the absence of any other specific symptoms. No associated fevers, nausea or vomiting, upper respiratory congestion/rhinorrhea, sore throat, shortness of breath of any kind, abdominal pain of any kind, flank pain, midline back pain, dysuria, hematuria, polyuria or oliguria, changes in b owel habits, pain or swelling to legs, weakness, numbness or tingling to bilateral arms or legs. Patient is alert and pleasantly and appropriately interactive and in no acute distress with completely appropriate vital signs aside from mildly elevated bloo d pressure upon initial evaluation here in the emergency department. Review of Systems Review of Systems Constitutional: Denies fever or chills [] Eyes: Denies change in visual acuity, redness, or eye pain [] HENT: Denies nasal congestion or sore throat [] Respiratory: Denies cough or shortness of breath [] Cardiovascular: No additional information not addressed in HPI [] GI: Denies abdominal pain, nausea, vomiting, bloody stools or diarrhea [] : Denies dysuria or hematuria [] Musculoskeletal: Denies back pain or joint pain [] Integument: Denies rash or skin lesions [] Neurologic: Denies headache, focal weakness or sensory changes [] Endocrine: Denies polyuria or polydipsia [] All other systems were reviewed and found to be within normal limits, except as documented in this note. Current Medications Current Medications Current Medications Medications (Trade) Dose Ordered Sig/Micheal Start Time Stop Time Status Last Admin Dose Admin Cyclobenzaprine HCl (Flexeril) 10 mg 1X ONCE 08/12/21 14:30 08/12/21 14:31 DC 08/12/21 14:32 10 MG Allergies Allergies Allergies Coded Allergies Type Severity Reaction Last Updated Verified Penicillins Allergy Unknown 05/13/20 Yes acetaminophen Allergy Unknown 05/13/20 Yes aspirin Allergy Unknown 05/13/20 Yes oxycodone Allergy Unknown 05/13/20 Yes Physical Exam Physical Exam Constitutional: Well developed, well nourished, no acute distress, non-toxic appearance. [] HENT: Normocephalic, atraumatic, bilateral external ears normal, oropharynx moist, no oral exudates, nose normal. [] Eyes: PERRLA, EOMI, conjunctiva normal, no discharge. [] Neck: Normal range of motion, no tenderness, supple, no stridor. [] Cardiovascular:Heart rate regular rhythm, no murmur [] Lungs & Thorax: Bilateral breath sounds clear to auscultation [] Abdomen: Bowel sounds normal, soft, no tenderness, no masses, no pulsatile masses. [] Skin: Warm, dry, no erythema, no rash. [] Back: No tenderness, no CVA tenderness. [] Extremities: No tenderness, no cyanosis, no clubbing, ROM intact, no edema. [] Neurologic: Alert and oriented X 3, normal motor function, normal sensory function, no focal deficits noted. [] Psychologic: Affect normal, judgement normal, mood normal. [] Current Patient Data Vital Signs Vital Signs Date Time Temp Pulse Resp B/P (MAP) Pulse Ox O2 Delivery O2 Flow Rate FiO2 08/12/21 14:20 98.3 109 18 139/91 (107) 97 EKG EKG Sinus rhythm, rate 88, no acute ST elevation or depression, MT 176, QRS 78, QTc 429, EP interpretation. Nonischemic tracing, intervals appropriate. Radiology/Procedures Radiology/Procedures Single view of the chest. 08/12/2021 2:27 PM Indication: Reason: chest pain / Spl. Instructions: / History: Comparison: Chest radiograph June 02, 2020 Findings: There is no focal consolidation. There is no pleural effusion or pneumothorax. The cardiomediastinal silhouette and pulmonary vasculature are within normal limits. No acute osseous abnormalities are seen. Impression: No evidence of acute cardiopulmonary process. Electronically signed by: Maykel Valdivia MD (08/12/2021 2:49 PM) [id number] DICTATED AND SIGNED BY: MAYKEL VALDIVIA MD DATE: 08/12/21 1445 CC: KIERSTEN MATHEWS MD; DANE CAVANAUGH APRN ~MTH0 0 Heart Score C/O Chest Pain: Yes HEART Score for Chest Pain: HEART Score for Chest Pain Response (Comments) Value History Slighlty/Non-Suspicious 0 ECG Normal 0 Age < 45 0 Risk Factors 1 or 2 Risk Factors 1 Troponin < Normal Limit 0 Total 1 Risk Factors: Risk Factors: DM, Current or recent (<one month) smoker, HTN, HLP, family history of CAD, obesity. Risk Scores: Risk Factors: DM, Current or recent (<one month) smoker, HTN, HLP, family history of CAD, obesity. Course & Med Decision Making Course & Med Decision Making HEART score 1, low risk for near-term MACE. [place] low risk for PE. 2 days of atypical chest discomfort and a well-appearing younger female with no family history of early cardiovascular disease and few risk factors for ACS. Checking labs, EKG and chest x-ray. Holding off on aspirin given reported significant aspirin allergy and relatively low suspicion for ACS. If work-up is reassuring and a second set of cardiac enzymes is within normal limits, anticipate likely discharge home to follow-up very closely with primary care in the next couple of days. Patient understands and agrees. 1800: Patient resting comfortably in no acute distress on serial reassessments. Reports dramatic improvement in her discomfort after a dose of cyclobenzaprine here in the emergency department. Labs including a second set of cardiac enzymes are entirely within normal limits. Chest x-ray unremarkable. EKG normal sinus without unusual features. Given symptomatic improvement and reassuring work-up and is well-appearing young patient, will discharge home to follow-up closely with primary care as per plan above. Patient understands that if she feels worse instead of better or develops other new symptoms of concern that she should return to the emergency department immediately for reevaluation. All questions are answered. Dragon Disclaimer Dragon Disclaimer This electronic medical record was generated, in whole or in part, using a voice recognition dictation system. Departure Departure: Impression: Primary Impression: Other chest pain Disposition: HOME / SELF CARE / HOMELESS Condition: IMPROVED Referrals: DANE CAVANAUGH APRN (PCP) Patient Instructions: Chest Pain (Nonspecific) Additional Instructions: [facility] [place] 1 to 2 days for a reevaluation of your symptoms and a discussion of next best steps in care. You may use [id number] ibuprofen or naproxen as needed for discomfort. Drink plenty of fluids and get plenty of rest. Return to the emergency department right away for worsening symptoms of any kind or with any other new symptoms of concern. KIERSTEN MATHEWS MD Aug 12, 2021 15:53
[2021-08-12 16:06] LABS: ALBUMIN 3.8 g/dL (3.4-5.0); ALBUMIN/GLOBULIN RATIO 0.8 (1.0-1.7); CALCIUM 9.1 mg/dL (8.5-10.1); CREATININE 0.9 mg/dL (0.6-1.0); GFR 85.7; POTASSIUM 3.8 mmol/L (3.5-5.1); TOTAL BILIRUBIN 0.2 mg/dL (0.2-1.0); TOTAL PROTEIN 8.4 g/dL (6.4-8.2)
[2021-08-12 16:51] LABS: PREG TEST PT QUAL NEGATIVE (NEG)
[2021-08-12 18:34] VITALS: BP 131/85
== END 2021-08-12 18:30 | disposition home or self-care (01) ==
LOC: ER 14:08
DX: R07.89 Other chest pain (principal); I10 Essential (primary) hypertension; J45.909 Unspecified asthma, uncomplicated; Z88.0 Allergy status to penicillin; Z88.6 Allergy status to analgesic agent; Z88.5 Allergy status to narcotic agent; Z20.822 Contact with and (suspected) exposure to COVID-19
CPT/HCPCS: 36415; 71045; 80053; 83880; 84484; 84703; 85025; 85379; 85610; 85730; 87426; 93005; 99285-25